=== PATIENT | male | born 1945 | race Caucasian/White ===

== ENCOUNTER 2022-12-28 15:28 | Emergency (ER) | payer OTHER ==
[~2022-12-28] VITALS: Ht 170.2 cm; Wt 61.4 kg
[2022-12-28 16:10] LABS: Basophils # (auto) 0.1 10 ^3/uL (0-0.2); Eosinophils # (auto) 0.1 10 ^3/uL (0-0.8); Monocytes # (auto) 0.9 10 ^3/uL (0-1.3)
[2022-12-28 16:12] LABS: Basophils % (auto) 0.7 % (0.0-2.0); Lymphocytes # (auto) 1.2 10 ^3/uL (0.4-5.4); Lymphocytes % (auto) 13.8 % (10.0-50.0); Mean Corpuscular Hemoglobin 29.6 pg (28.0-32.0); Mean Corpuscular Hgb Conc. 34.6 g/dL (32.0-36.0); Mean Corpuscular Volume 85.5 fL (80.0-100.0); Monocytes % (auto) 10.1 % (0.0-12.0); Neutrophils # (auto) 6.5 10 ^3/uL (1.6-8.6); Neutrophils % (auto) 74.4 % (37.0-80.0); Red Cell Distribution Width 16.2 % (11.8-14.3); White Blood Cell 8.8 10^3/uL (4.4-10.8)
[2022-12-28 16:25] LABS: Hemoglobin 6.2 g/dL (13.5-17.5)
[2022-12-28 16:27] LABS: Albumin 3.4 g/dL (3.4-5.0); BUN/Creatinine Ratio 19.9 (10.0-20.0); Calcium 9.3 mg/dL (8.5-10.1); Potassium 4.9 mmol/L (3.5-5.1)
[2022-12-28 16:29] LABS: Bilirubin, Total 0.2 mg/dL (0.2-1.0); Total Protein 6.1 g/dL (6.4-8.2)
[2022-12-28 17:06] LABS: Partial Thromboplastin Time 23.6 SEC (24.5-34.5)
[2022-12-28] MEDS ORDERED: HYDROcodone-ACET 5/325MG TAB PO ONE (18:30)
[2022-12-28 20:41] VITALS: BP 161/79
[2022-12-28 20:56] VITALS: BP 169/72
[2022-12-28 21:15] VITALS: BP 167/82
[2022-12-28 21:45] VITALS: BP 154/67
[2022-12-28] MEDS ORDERED: HYDROcodone-ACET 10/325MG TAB PO ONE (22:00)
[2022-12-28 22:30] VITALS: BP 158/77
[2022-12-28 23:01] VITALS: BP 168/82
[2022-12-29 00:50] LABS: Hemoglobin 7.6 g/dL (13.5-17.5)
[2022-12-29 00:51] LABS: Hematocrit 22.9 % (41.0-53.0)
[2022-12-29] MEDS ORDERED: HYDROcodone-ACET 10/325MG TAB PO ONE (02:45)
[2022-12-29 03:00] VITALS: BP 153/66
== END 2022-12-29 04:01 | disposition home or self-care (01) ==
LOC: EDBD 15:28 → ER 15:28
DX: D64.9 Anemia, unspecified (principal); R55 Syncope and collapse
CPT/HCPCS: 36415; 36430; 74176; 80053; 85014; 85018; 85025; 85610; 85730; 86850; 86900; 86901; 86920; 93005; 99285; P9016